=== PATIENT | female | born 1975 | race Caucasian/White ===

== ENCOUNTER → 2020-08-06 | Outpatient (CLI) | payer OTHER ==
[~2020-08-06] MED LIST: ACID REDUCER20 M1 PO; AZELASTINE205.5 MCG/ NARES; BIRTH CONTROL PO; CALCIUM500 MG PO; CELEXA 10 MG TA10 M1 PO; CEPHALEXIN500 MG PO; CLARITIN10 M3 PO; DULERA 100 MCG/13 GM INH; FLONASE 0.05%50 MCG NASAL; HYDROCHLOROTH12.5 M2 PO; IMITREX 25 MG T25 M1 PO; LISINOPRIL10 MG PO; METFORMIN HCL500 M3 PO; PROAIR HFA8.5 GM INH; SINGULAIR 10 MG10 MG PO; SUPER BEET PO; SUPER THERAVIT1 EACH PO; VITAMIN B-121000 MC2 PO; VITAMIN C500 M2 PO; VITAMIN D325 MC3 PO
== END ==
LOC: LAB 10:19
PROVIDERS: ATTEND Student in an Organized Health Care Education/Training Program
DX: Z01.812 Encounter for preprocedural laboratory examination (principal); Z20.822 Contact with and (suspected) exposure to COVID-19

== ENCOUNTER → 2020-08-08 | Outpatient (CLI) | payer OTHER ==
[~2020-08-08] VITALS: Ht 157.5 cm; Wt 125.6 kg
--- NOTE | 2020-08-12 18:06 | PATH ---
[facility] [place] [address] PATHOLOGY RPT PROCEDURE Name: ROQUE LEIVA Devin Room #: REG [facility].#: [id number] Admission: 08/08/20 Date of : 79 Discharge: Report #: [id number] Path Case #: [id number] [facility] Accession Number: [id number] . 01 Material submitted: . PART A: duodenum - DUODENAL BX R/O SPRUE PART B: gastrointestinal site - GASTRIC BX GASTRITIS R/O H PYLORI PART C: colon - MARTITA COLON BX R/O MICROSCOPIC COLITIS PART D: rectum - BX RECTAL POLYP X2 . 01 Clinical history: . EGD COLONOSCOPY DIARRHEA/ABD PAIN . 02 Diagnosis: A. Small bowel mucosa, duodenum to rule out sprue, endoscopic biopsy: - No diagnostic abnormalities present. - Negative for villous blunting or increase in intraepithelial lymphocytes. . B. Gastric mucosa, gastritis to rule out H. pylori, endoscopic biopsy: - Mild chronic gastritis with features of reactive gastropathy. - Negative for intestinal metaplasia or atrophy. - Negative for Helicobacter pylori (properly controlled immunohistochemical stain performed). . C. Large intestine, random colon, endoscopic biopsy: - Nonspecific reactive changes with rare apoptotic bodies and rare hyperplastic changes, see comment. - Negative for active colitis. - Negative for microscopic colitis. - Negative for dysplasia or malignancy. . D. Polyp x2, rectum, endoscopic biopsy: - Hyperplastic polyp x2. - Negative for dysplasia. . (IUV:defence force senior officer; 08/12/2020) [facility] 08/12/2020 1103 Local . 02 Comment: The nonspecific changes identified within the "random colon" biopsy tissue may be suggestive of a resolving episode of colitis, medication or drug-induced changes, bowel preparation, as well as chronic diverticulitis. Please correlate clinically. (IUV:defence force senior officer; 08/12/2020) [address] [address] PATHOLOGY RPT PROCEDURE Name: ROQUE LEIVA Room #: REG CLI [facility].#: [id number] Admission: 08/08/20 Date of : 79 Discharge: Report #: [id number] Path Case #: [id number] . 02 Electronically signed: . Radha London MD, Pathologist NPI- [id number] . 01 Gross description: . A. The specimen is received in formalin, labeled "Roque Leiva duodenal biopsy". Received are three segments of pale gómez tissue measuring 0.3 cm each in maximum dimensions. The specimen is submitted entirely in cassette A1. . B. The specimen is received in formalin, labeled "Roque Jesus, gastritis". Received are three segments of pale gómez tissue ranging in size from 0.3-0.4 cm in maximum dimensions. The specimen is submitted entirely in cassette B1. . C. The specimen is received in formalin, labeled "Roque Jesus, random colon biopsy". Received are multiple segments of pale gómez tissue ranging in size from 0.3-0.5 cm in maximum dimensions. The specimen is submitted entirely in cassette C1. . D. The specimen is received in formalin, labeled "Roque Gratis, biopsy rectal polyp". Received are two segments of pale gómez tissue measuring 0.2 and 0.3 cm in maximum dimensions. The specimen is submitted entirely in cassette D1. (CAA; 08/11/2020) QA/QA 08/11/2020 1317 Local . 02 Pathologist provided ICD-10: K29.50, K63.89, K62.1, R19.7, R10.9 . 02 CPT . 835675, 703247, 495174, 189165, [id number] Specimen Comment: A courtesy copy of this report has been sent to [phone] Specimen Comment: Report sent to Performed at: 01 [facility] [address], [place] [id number] MD Ben Joseph MD Phone: [phone] Performed at: [address] [id number] MD Radha London MD Phone: [phone]
--- NOTE | 2020-08-13 08:07 | P ---
[facility] [place] [address] [place] [address] PROCEDURE REPORT Name: ROQUE LEIVA Devin Room #: REG [facility]#: [id number] Admission: 08/08/20 Attend Phys: Thaddeus Chen Discharge: Date of : 79 Report #: [id number] THIS REPORT FOR: cc: FAM - Family physician unknown FAM - Family physician unknown Thaddeus Clark MD ~ DOC #: [id number] cc: Dr. Dane Clark MD DATE OF SERVICE: 08/08/2020 PROCEDURE PERFORMED: Upper endoscopy with biopsies. HISTORY OF PRESENT ILLNESS: The patient is a 44-year-old female with a history of intermittent nausea, vomiting, abdominal pain, which is primarily midepigastric, worse after eating, also has intermittent diarrhea and constipation, more diarrhea in general, bright red blood per rectum at times. Plan is for EGD and colonoscopy today. DESCRIPTION OF PROCEDURE: The risks and benefits of the procedure were explained to the patient, those risks including but not limited to bleeding, perforation and the risk of sedation. She understood these risks and gave informed consent. Sedation was given using propofol per Anesthesia. Next, using a standard Olympus upper endoscope, the scope was placed in the patient's mouth and advanced under direct vision through the esophagus, stomach and into the second portion of the duodenum. The larynx was normal in appearance. The esophagus was normal. The GE junction was normal. Overall, the gastric mucosa was normal in the fundus and body. Mild erythema was noted in the gastric antrum. Biopsies were obtained to rule out H. pylori. The pylorus was normal and patent. The duodenal bulb, first and second portion were all normal. Biopsies were obtained to rule out the possibility of celiac sprue. The scope was then withdrawn and the procedure terminated. The patient tolerated the procedure well. IMPRESSION: 1. Mild gastritis. 2. Otherwise, normal upper endoscopy. RECOMMENDATIONS: 1. Await biopsy results. 2. Continue PPI therapy. 3. We will proceed with colonoscopy on next day. Thank you for allowing me to participate in her care. [address] [address] PROCEDURE REPORT Name: ROQUE LEIVA Room #: [facility]#: [id number] Admission: 08/08/20 Attend Phys: Thaddeus Chen Discharge: Date of : 79 Report #: [id number] Thaddeus Clark MD CCM/JULIAN <ELECTRONICALLY SIGNED> By: Thaddeus Clark MD 08/13/20806 0 28 Thaddeus Clark MD /nt
--- NOTE | 2020-08-13 08:07 | P ---
[facility] [place] [address] [place] [address] PROCEDURE REPORT Name: ROQUE LEIVA Room #: REG [facility]#: [id number] Admission: 08/08/20 Attend Phys: Thaddeus Chen Discharge: Date of : 79 Report #: [id number] THIS REPORT FOR: cc: FAM - Family physician unknown FAM - Family physician unknown Thaddeus Clark MD ~ DOC #: [id number] cc: SASHA Price MD DATE OF SERVICE: 08/08/2020 PROCEDURE PERFORMED: Colonoscopy with biopsies. HISTORY OF PRESENT ILLNESS: The patient is a 44-year-old female who reports fairly constant abdominal pain typically after eating. This has been ongoing for several months. She does have a history of intermittent diarrhea and constipation, tends to be more diarrhea. She also notes a small amount of bright red blood per rectum over the last few months at times. No family history of colon cancer or inflammatory bowel disease. She underwent an upper endoscopy by myself today showing only mild gastritis, otherwise normal. Biopsies were obtained to rule out H. pylori and celiac sprue today. Plan is for colonoscopy. DESCRIPTION OF PROCEDURE: The risks and benefits of the procedure were explained to the patient, those risks including but not limited to bleeding, perforation and the risk of sedation. She understood these risks and gave informed consent. Sedation was given using propofol per anesthesia. Next, a digital rectal exam was initially performed, which showed small external hemorrhoids, otherwise normal. Next, using a standard Olympus colonoscope, the scope was placed in the patient's anus and advanced under direct vision to the cecum. The overall prep was excellent. The cecum and ileocecal valve were normal in appearance. The terminal ileum was intubated, normal in appearance. The ascending, transverse, descending, and sigmoid colon were all normal. In the rectum, there were two 3-4 mm sessile polyps noted, both removed with cold forceps. On retroflexion, no abnormalities were noted. Close examination of the anal canal showed external hemorrhoids, nonbleeding. No evidence of anal fissure. The scope was then withdrawn and the procedure terminated. The patient tolerated the procedure well. IMPRESSION: 1. Two small rectal polyps. 2. External hemorrhoids. 3. Otherwise, normal colonoscopy. RECOMMENDATIONS: [address] [address] PROCEDURE REPORT Name: ROQUE LEIVA Room #: REG [facility]#: [id number] Admission: 08/08/20 Attend Phys: Thaddeus Chen Discharge: Date of : 79 Report #: [id number] 1. Await biopsy results. 2. Intermittent bright red blood, likely secondary to external hemorrhoids. Recommend fiber in the diet and Analpram, prescription was given today. Etiology of her abdominal pain is unclear. The patient is already on PPI therapy. We will write a prescription for Levsin to be used on a p.r.n. basis initially for possible irritable bowel syndrome. If biopsies are negative and the patient has no improvement, would recommend proceeding with an ultrasound of the abdomen to rule out the possibility of gallbladder etiology. Thank you for allowing me to participate in her care. Thaddeus Clark MD CCM/LUBA <ELECTRONICALLY SIGNED> By: Thaddeus Clark MD 08/13/20 0807 0945 41 Thaddeus Clark MD /nt
== END | disposition home or self-care (01) ==
LOC: GI
PROVIDERS: ATTEND Specialist
DX: R10.9 Unspecified abdominal pain (principal); K92.1 Melena; K62.1 Rectal polyp; K63.89 Other specified diseases of intestine; K29.50 Unspecified chronic gastritis without bleeding; K31.9 Disease of stomach and duodenum, unspecified; K64.4 Residual hemorrhoidal skin tags; R11.2 Nausea with vomiting, unspecified; K21.9 Gastro-esophageal reflux disease without esophagitis; I10 Essential (primary) hypertension; J45.909 Unspecified asthma, uncomplicated; G43.909 Migraine, unspecified, not intractable, without status migrainosus; G47.30 Sleep apnea, unspecified; Z98.890 Other specified postprocedural states; Z79.899 Other long term (current) drug therapy; Z87.891 Personal history of nicotine dependence
CPT/HCPCS: 62110; 62900